=== PATIENT | male | born 1965 | race Caucasian/White ===

== ENCOUNTER 2016-12-26 08:02 | Observation (INO) | payer BC ==
[2016-12-26] VITALS (7 sets, daily range): BP systolic 116–139; BP diastolic 66–84; PULSE 55–70; TEMP 36.5–36.7; O2SAT 92–98; Ht 177.8 cm; Wt 119.1 kg
[~2016-12-26] VITALS: Ht 177.8 cm; Wt 119.1 kg
[~2016-12-26 08:02] MED LIST: LIDO2SOL17 PO
[2016-12-26 09:29] LABS: BASO % 0.2 %; BASO ABS # 0.01 K/uL (0-0.2); COMPLETE YES; EOS % 1.4 %; IG% 0.2 %; LYMPH % 33.7 %; LYMPH ABS # 1.96 K/uL (1.2-3.4); MEAN CELL VOLUME 88.8 fL (80-100); MEAN CORPUSCULAR HEMOGLOBIN 29.8 pg (25-34); MEAN CORPUSCULAR HGB CONC 33.5 g/dl (32-36); MEAN PLATELET VOLUME 10.1 fL (7.4-10.4); MONO % 7.2 %; NEUT % 57.3 %; PLATELET COUNT 202 K/uL (130-400); RED BLOOD COUNT 4.84 M/uL (4.7-6.1); WHITE BLOOD COUNT 5.82 K/uL (4.8-10.8)
[2016-12-26 09:44] LABS: BUN/CREATININE RATIO 16.4 (10-20); CALCIUM 8.4 mg/dl (8.5-10.1); CREATININE 1.1 mg/dl (0.60-1.40); POTASSIUM 4.2 mmol/L (3.5-5.1)
[2016-12-26] MEDS ORDERED: BUPIVACAINE 0.5 % 5 MG/1 ML MPF 30ML VIAL ONE (09:45)
[2016-12-26] MEDS ORDERED: CEFAZOLIN SOD 1 GM VIAL ONE (09:45)
[2016-12-26 09:46] LABS: ALB/GLOB RATIO 1.2 (0.9-2)
--- NOTE | 2016-12-26 09:51 | EMERGENCY ROOM VISIT NOTE ---
History First contact with patient: 08:49 Chief Complaint: GROIN PAIN Stated Complaint: HERNIA POPPED OUT, TIGHT/PAINFUL History of Present Illness The patient is a 51 year old male who presents to the Emergency Room with complaints of pain in the site of umbilical hernia. The patient has had a number local hernia. Up until this point it has been soft and reducible. The patient states that 3 days ago he was straining to have a bowel movement and noticed a hernia popped out. He states it has been painful and not reducible since then. He reports some discoloration of the skin. He rates his discomfort a 5/10. He denies any fevers or chills. He denies any nausea or vomiting. He denies any urinary symptoms. He has never seen a general surgeon for the hernia but has seen his family doctor. Review of Systems A 10 system review of systems was completed with positives and pertinent negatives listed in the HPI. Past Medical/Surgical History Medical Problems: (1) Incarcerated umbilical hernia Patient denies Social History Smoking Status: Never Smoker Housing Status: lives with family Occupation Status: employed Current/Historical Medications Scheduled Cephalexin Monohydrate (Keflex), 500 MG PO QID Scheduled PRN Hydrocodone/Acetaminophen 5MG/325MG (Spooner 5MG/325MG), 1-2 TABLET PO q 6 hrs PRN for Pain Allergies Coded Allergies: No Known Allergies (Unverified , 12/26/16) Physical Exam Vital Signs Date Time Temp Pulse Resp B/P Pulse Ox O2 Delivery O2 Flow Rate FiO2 12/26/16 10:06 62 18 135/82 98 Room Air 12/26/16 08:12 36.6 64 18 123/76 97 Room Air Physical Exam VITALS: Vitals are noted on the nurse's note and reviewed by myself. Vital signs stable. The patient is afebrile. He is not tachycardic or tachypneic. GENERAL: This is a 51-year-old male, in no acute distress, nondiaphoretic, well- developed well-nourished. SKIN: The skin was without rashes, erythema, edema, or bruising. There is no tenting of the skin. Capillary reflex less than 2 seconds. HEAD: Normocephalic atraumatic. EARS: The external ears are normal in appearance. EYES: Pupils equal round and reactive to light and accommodation. Conjunctivae without injection, sclerae without icterus. Extraocular movements intact. NOSE: Patent, turbinates without inflammation or discharge. MOUTH: Mucous membranes moist. Tongue does not deviate. NECK: Supple without nuchal rigidity. No lymphadenopathy. No thyromegaly. Cervical spine is nontender. No JVD. HEART: Regular rate and rhythm without murmurs gallops or rubs. LUNGS: Clear to auscultation bilaterally without wheezes, rales or rhonchi. No retractions or accessory muscle use. ABDOMEN: Positive bowel sounds x 4. There is a non-reducible umbilical hernia. There is erythema noted in the area of the hernia and periumbilically. There is tenderness at the site of hernia. The abdomen is otherwise soft and nontender. MUSCULOSKELETAL: No muscle atrophy, erythema, or edema noted. Full range of motion in all extremities. Normal gait. Strength 5/5 throughout. NEURO: Patient was alert and oriented to person place and time. No focal neurological deficits. Medical Decision & Procedures Laboratory Results 12/26/16 09:10 Red Blood Count 4.84, Mean Corpuscular Volume 88.8, Mean Corpuscular Hemoglobin 29.8, Mean Corpuscular Hemoglobin Concent 33.5, Mean Platelet Volume 10.1, Neutrophils (%) (Auto) 57.3, Lymphocytes (%) (Auto) 33.7, Monocytes (%) (Auto) 7.2, Eosinophils (%) (Auto) 1.4, Basophils (%) (Auto) 0.2, Neutrophils # (Auto) 3.34, Lymphocytes # (Auto) 1.96, Monocytes # (Auto) 0.42, Eosinophils # (Auto) 0.08, Basophils # (Auto) 0.01 12/26/16 09:10 Test 12/26/16 09:10 White Blood Count 5.82 K/uL (4.8-10.8) Red Blood Count 4.84 M/uL (4.7-6.1) Hemoglobin 14.4 g/dL (14.0-18.0) Hematocrit 43.0 % (42-52) Mean Corpuscular Volume 88.8 fL (80-100) Mean Corpuscular Hemoglobin 29.8 pg (25-34) Mean Corpuscular Hemoglobin Concent 33.5 g/dl (32-36) Platelet Count 202 K/uL (130-400) Mean Platelet Volume 10.1 fL (7.4-10.4) Neutrophils (%) (Auto) 57.3 % Lymphocytes (%) (Auto) 33.7 % Monocytes (%) (Auto) 7.2 % Eosinophils (%) (Auto) 1.4 % Basophils (%) (Auto) 0.2 % Neutrophils # (Auto) 3.34 K/uL (1.4-6.5) Lymphocytes # (Auto) 1.96 K/uL (1.2-3.4) Monocytes # (Auto) 0.42 K/uL (0.11-0.59) Eosinophils # (Auto) 0.08 K/uL (0-0.5) Basophils # (Auto) 0.01 K/uL (0-0.2) RDW Standard Deviation 40.9 fL (36.4-46.3) RDW Coefficient of Variation 12.7 % (11.5-14.5) Immature Granulocyte % (Auto) 0.2 % Immature Granulocyte # (Auto) 0.01 K/uL (0.00-0.02) Anion Gap 6.0 mmol/L (3-11) Est Creatinine Clear Calc Drug Dose 101.6 ml/min Estimated GFR () 89.0 Estimated GFR (Non- 76.8 BUN/Creatinine Ratio 16.4 (10-20) Calcium Level 8.4 mg/dl (8.5-10.1) Total Bilirubin 0.7 mg/dl (0.2-1) Aspartate Amino Transf (AST/SGOT) 16 U/L (15-37) Alanine Aminotransferase (ALT/SGPT) 42 U/L (12-78) Alkaline Phosphatase 115 U/L (45-117) Total Protein 6.7 gm/dl (6.4-8.2) Albumin 3.6 gm/dl (3.4-5.0) Globulin 3.1 gm/dl (2.5-4.0) Albumin/Globulin Ratio 1.2 (0.9-2) Hepatitis C Antibody Screen NEG (NEG) Medications Administered Medications (Trade) Dose Ordered Sig/Rosa Maria Route Start Time Stop Time Status Last Admin Dose Admin Cefazolin Sodium/ Dextrose (Ancef Iv/D5 50ml) 60 ml @ 100 mls/hr 1000 ONCE IV 5/28/17 10:00 12/26/16 10:35 DC 12/26/16 10:05 100 MLS/HR Bupivacaine HCl 30 ml 30 ml STK-MED ONCE .ROUTE 12/26/16 09:45 12/26/16 09:46 DC 12/26/16 11:10 13 ML Lactated Ringer's (Lr 1000ml) 1,000 ml @ 75 mls/hr [id number] IV 12/26/16 11:20 12/26/16 16:00 DC 12/26/16 11:20 75 MLS/HR ED Course The patient was seen and examined. Previous visits were reviewed. The patient does not have a fever or leukocytosis. He does not have any significant electrolyte abnormalities. The patient appears to have an incarcerated umbilical hernia. He does have overlying skin changes. I discussed the case with Dr. Cardona who evaluated the patient in the emergency department and will taken to the operating room. The case was discussed with Dr. Vale who agrees with the assessment and treatment plan. Medical Decision The differential diagnosis includes cellulitis, strangulate hernia, incarcerated hernia, among others Impression Primary Impression: Incarcerated umbilical hernia Departure Information Dispostion Admitted as an inpatient Condition FAIR Prescriptions Cephalexin Monohydrate (KEFLEX) 500 Mg Cap 500 MG PO QID for 5 Days, #20 CAP Prov: Lakhwinder Cardona M.D. 12/26/16 Hydrocodone/Acetaminophen 5MG/325MG (Spooner 5MG/325MG) Tab 1-2 TABLET PO q 6 hrs Y for Pain, #30 TAB PRN PAIN Prov: Lakhwinder Cardona M.D. 12/26/16 Referrals Mason Connelly M.D. (PCP) Patient Instructions [facility]
--- NOTE | 2016-12-26 09:56 | History and Physical ---
History & Physical Date December 26, 2016. Chief Complaint umbilical pain, redness History of Present Illness The patient is a 51 year old male with complaints of pain for 1-2 days at umbilicus worsening, now redness Past Medical/Surgical History negative Additional History Hepatic Disease: No Endocrine Disorder: No Kidney Disease: No Hypertension: No Heart Disease: No Allergies Coded Allergies: No Known Allergies (Unverified , 12/26/16) Home Medications No Active Prescriptions or Reported Meds Physical Examination Skin: warm/dry Head: atraumatic Neck: supple Respiratory/Chest: no respiratory distress Cardiovascular: regular rate, rhythm Abdomen / GI: + pertinent finding (small sac at umbilicus, surrounding erythema 2-3 cm, tender) Extremities: normal inspection Neurologic/Psych: alert Diagnosis incarcerated umbilical hernia Plan of Treatment for urgent incarcerated umbilical hernia repair observation, atbx, probable d/c tomorrow
[2016-12-26] MEDS ORDERED: CEFAZOLIN IV 2,000 MG in DEXTROSE 5% 50ML 50 ML IV ONE (10:00)
[2016-12-26] MEDS ORDERED: GLYCOPYRROLATE INJ 0.2 MG/ML VIAL ONE (10:11)
[2016-12-26] MEDS ORDERED: DEXAMETHASONE SOD INJ 4 MG/ML VIAL ONE ×2 (10:11→11:38)
[2016-12-26] MEDS ORDERED: ROCURONIUM BROMIDE 10 MG/ML 5 ML VIAL ONE (10:11)
[2016-12-26] MEDS ORDERED: LIDOCAINE HCL 2% 2 ML VIAL (20MG/ML) ONE (10:11)
[2016-12-26] MEDS ORDERED: MIDAZOLAM HCL 1 MG/ML 2ML VIAL ONE (10:11)
[2016-12-26] MEDS ORDERED: ONDANSETRON INJ 2 MG/ML 2 ML VIAL ONE ×2 (10:11→11:38)
[2016-12-26] MEDS ORDERED: SUCCINYLCHOLINE CHLORIDE 20 MG/ML 10 ML VIAL IV ONE (10:11)
[2016-12-26] MEDS ORDERED: NEOSTIGMINE METHYLSULFATE 5 MG/5 ML SYR ONE (10:11)
[2016-12-26] MEDS ORDERED: FENTANYL CITRATE INJ 50 MCG/1 ML 2 ML VIAL ONE (10:11)
[2016-12-26] MEDS ORDERED: PHENYLEPHRINE HCL INJ 10 MG/ML VIAL ONE (10:11)
[2016-12-26] MEDS ORDERED: EpHEDrine SULFATE INJ 50 MG/ML AMP ONE (10:11)
[2016-12-26] MEDS ORDERED: PROPOFOL IV EMULSION 10 MG/ML 20 ML VIAL IV ONE (10:11)
[2016-12-26] MEDS ORDERED: LACTATED RINGER'S 1000ML 1,000 ML IV SCH (11:20)
--- NOTE | 2016-12-26 11:20 | [facility] Post Operative Brief Note ---
Immediate Operative Summary Operative Date December 26, 2016. Pre-Operative Diagnosis Incarcerated umbilical hernia Post-Operative Diagnosis Same as pre-operative diagnosis infarcted omentum Procedure(s) Performed Open Incarcerated Umbilical Hernia Repair Surgeon Dr. Lakhwinder Cardona Oil Drilling Engineer Surgeon(s) None Estimated Blood Loss 5 mL Findings small segment of infarcted omentum Specimens Permanent specimens A: Hernia contents B: Hernia sac Drains maco to subcu Anesthesia gen/ LMA Complication(s) None Disposition Recovery Room / PACU
[2016-12-26] MEDS ORDERED: HYDROCODONE/ACETAMOPHEN 5/325MG TAB PO PRN (11:30)
[2016-12-26] MEDS ORDERED: MoRPHine SULFATE 2 MG/ML CARP IV PRN (11:30)
[2016-12-26] MEDS ORDERED: KETOROLAC TROMETHAMINE 30 MG/ML VIAL IV. ONE (11:30)
[2016-12-26] MEDS ORDERED: ONDANSETRON INJ 2 MG/ML 2 ML VIAL IV PRN ×2 (11:30→12:00)
[2016-12-26] MEDS ORDERED: MoRPHine SULFATE 4 MG/ML 1 ML CARP\\VIAL IV PRN (11:30)
[2016-12-26] MEDS ORDERED: PROMETHAZINE HCL INJ 25 MG in SODIUM CHLORIDE 0.9% 50ML 50 ML IV PRN (11:30)
[2016-12-26] MEDS ORDERED: PROMETHAZINE HCL INJ 12.5 MG in SODIUM CHLORIDE 0.9% 50ML 50 ML IV PRN ×2 (12:00→14:00)
[2016-12-26] MEDS ORDERED: LABETALOL HCL IV 5 MG/ML 20ML IV PRN (12:00)
[2016-12-26] MEDS ORDERED: NALOXONE HCL 0.4 MG/1 ML VIAL/CARP IV PRN (12:00)
[2016-12-26] MEDS ORDERED: FLUMAZENIL 0.1 MG/1 ML 10 ML VIAL IV PRN (12:00)
[2016-12-26] MEDS ORDERED: HYDROmorphone INJ 1 MG/ML SYR IV PRN (12:00)
[2016-12-26] MEDS ORDERED: ATROPINE SULFATE 0.1 MG/ML 5ML SYR IV PRN (12:00)
[2016-12-26] MEDS ORDERED: EpHEDrine SULFATE INJ 50 MG/ML AMP IV PRN (12:00)
[2016-12-26] MEDS ORDERED: HYDR-5688 PO (12:11)
[2016-12-26] MEDS ORDERED: CEPH500C2 PO (12:11)
--- NOTE | 2016-12-26 12:15 | Discharge Instructions ---
Discharge Instructions Date of Service December 26, 2016. Admission Reason for Admission: Hernia Popped Out, Tight/Painful Discharge Discharge Diagnosis / Problem: incarcerated umbilical hernia Discharge Goals Goal(s): Decrease discomfort, Improve function, Improve disease control Activity Recommendations Activity Limitations: as noted below Lifting Limitations: no more than 10 pounds Exercise/Sports Limitations: until after follow-up appointment May Resume Sexual Activity: when tolerated Shower/Bathe: tomorrow Driving or Machine Use: resume 3 days after discharge SPECIAL CARE INSTRUCTIONS: * Cover incisions and change daily for comfort/drainage. may use Senokot S and Milk of magnesia twice daily to avoid constipation as directed on the package * May use ibuprofen for pain as tolerated. * Expect some swelling and bruising. Call your doctor if: * Temperature above 101 degrees * Pain not relieved by pain medicine ordered * There is increased drainage or redness from any incision * You have any unanswered questions or concerns [phone]. FOLLOW UP VISIT: If not already scheduled, please call the office for a follow-up visit. for 12/31- drain removal/ wound check OFFICE PHONE NUMBER: Dr. Cardona Office . Current Hospital Diet Patient's current hospital diet: Regular Diet Discharge Diet Recommended Diet: Regular Diet Procedures Procedures Performed: Open Incarcerated Umbilical Hernia Repair Pending Studies Studies pending at discharge: no Medical Emergencies . Who to Call and When: Medical Emergencies: If at any time you feel your situation is an emergency, please call 911 immediately. . Non-Emergent Contact Non-Emergency issues call your: Primary Care Provider, Surgeon . "Provider Documentation" section prepared by Lakhwinder Cardona. . VTE Core Measure Inpt VTE Proph given/why not?: SCD's
--- NOTE | 2016-12-26 12:44 | Anesthesiology Progress Note ---
Anesthesia Post Op Note Date & Time December 26, 2016 at 12:44 Vital Signs Pain Intensity: 0 Vital Signs Past 12 Hours Date Time Temp Pulse Resp B/P Pulse Ox O2 Delivery O2 Flow Rate FiO2 12/26/16 12:30 36.4 58 16 135/81 99 Nasal Cannula 2 12/26/16 12:20 36.4 54 16 136/81 98 Nasal Cannula 2 12/26/16 12:10 36.4 57 16 130/81 98 Nasal Cannula 2 12/26/16 12:00 55 16 144/81 100 Nasal Cannula 2 12/26/16 11:50 62 16 127/78 100 Mask 10 12/26/16 11:40 59 16 136/82 100 Mask 10 12/26/16 11:30 36.4 69 16 133/86 100 Mask 10 12/26/16 10:06 62 18 135/82 98 Room Air 12/26/16 08:12 36.6 64 18 123/76 97 Room Air Notes Mental Status: alert / awake / arousable, participated in evaluation Pt Amnestic to Procedure: Yes Nausea / Vomiting: adequately controlled Pain: adequately controlled Airway Patency, RR, SpO2: stable & adequate BP & HR: stable & adequate Hydration State: stable & adequate Anesthetic Complications: no major complications apparent
[2016-12-26] MEDS: DOCUSATE SODIUM/SENNA 50/8.6MG TAB PO SCH ×2 (13:59→20:57)
[2016-12-26] MEDS ORDERED: IV FLUIDS COMPLETED PRN (14:45)
--- NOTE | 2016-12-26 18:05 | OPERATIVE REPORT ---
DATE OF OPERATION: 12/26/2016 NAME OF OPERATION: Open repair of incarcerated strangulated umbilical hernia. PREOPERATIVE DIAGNOSIS: Incarcerated umbilical hernia. POSTOPERATIVE DIAGNOSIS: Same. STAFF SURGEON: Dr. Cardona. ANESTHESIA: General. FINDINGS: The patient had infarcted omentum within the incarcerated hernia. DESCRIPTION OF PROCEDURE: The patient was brought in the operating room and placed on the operating table in supine position. His abdomen was prepped and draped in usual fashion. 0.5% plain Marcaine was used to anesthetize skin and subcutaneous tissue and also the fascia. Incision made below the umbilicus, carrying dissection down, identifying the hernia sac, opening the sac, identifying omentum. The majority of the omentum was viable but there was 1 small segment which was infarcted. This was excised as well as excising another small segment of omentum. The remainder was reduced through a 1.5 cm defect. The sac was probably 4-5 cm in diameter. Part of the sac was excised, the umbilicus dissected away from the fascia and then the defect closed using interrupted 0 Ethibond suture. The subcutaneous tissue was irrigated. The umbilicus then reattached to the fascia using 2-0 chromic catgut suture. A small Leo drain placed in the subcutaneous space, secured to the skin using 4-0 nylon suture. Subcutaneous tissue reapproximated using 2-0 plain catgut suture, then the skin reapproximated using interrupted 5-0 Prolene suture. The patient was transferred to recovery room in stable condition. I attest to the content of the Intraoperative Record and any orders documented therein. Any exceptio ns are noted below.
[2016-12-26] MEDS: CEFAZOLIN IV 2,000 MG in DEXTROSE 5% 50ML 50 ML IV SCH (18:15)
[2016-12-26] MEDS: HYDROCODONE/ACETAMOPHEN 5/325MG TAB PO PRN ×2 (18:19→23:41)
[2016-12-26 18:53] LABS: MANUAL MICROSCOPIC REQUIRED? NO; REVIEW REQ? NO; URINE APPEARANCE CLEAR (CLEAR); URINE BILIRUBIN NEG (NEG); URINE COLOR YELLOW; URINE NITRITE NEG (NEG); URINE SPECIFIC GRAVITY 1.016 (1.000-1.030); UROBILINOGEN NEG (NEG); ZZUR CULT IF INDIC CLEAN CATCH NO
[2016-12-27] MEDS: CEFAZOLIN IV 2,000 MG in DEXTROSE 5% 50ML 50 ML IV SCH (01:49)
[2016-12-27 03:14] VITALS: BP 120/70; PULSE 62; TEMP 36.7; O2SAT 94
[2016-12-27 06:51] VITALS: BP 128/70; PULSE 56; TEMP 36.6; O2SAT 93
[2016-12-27] MEDS: HYDROCODONE/ACETAMOPHEN 5/325MG TAB PO PRN ×2 (07:28→09:06)
--- NOTE | 2016-12-27 08:41 | DISCHARGE SUMMARY ---
PRINCIPAL DIAGNOSIS: Incarcerated strangulated umbilical hernia. PROCEDURES: The patient underwent umbilical hernia repair. HISTORY OF PRESENT ILLNESS: The patient is a 51-year-old male presenting to the Emergency Room on 12/26/2016 with severe periumbilical pain. Diagnosed with incarcerated umbilical hernia. He was taken to the operating room urgently and underwent umbilical hernia repair with excision of infarcted omentum. He has done quite well and is ready for discharge home to be seen in the surgical clinic later this week.
[2016-12-27] MEDS: DOCUSATE SODIUM/SENNA 50/8.6MG TAB PO SCH (09:02)
[2016-12-27 09:09] VITALS: BP 128/70; PULSE 56; TEMP 36.6; O2SAT 93
== END 2016-12-27 09:59 | disposition home or self-care (01) ==
LOC: ENRESERVTM → ENRESERVDT → C.EDB 08:03 → C.MSW 11:24
PROVIDERS: ADMIT Surgery; ATTEND Surgery
DX: K42.0 Umbilical hernia with obstruction, without gangrene (principal)